=== PATIENT | female | born 1940 ===

== ENCOUNTER 2017-07-15 09:45 | Day surgery (SDC) | payer MEDICARE, MEDICAID ==
[2017-07-15 10:57] VITALS: TEMP 97
[2017-07-15] MEDS ORDERED: Propofol 10 mg/ml Inj (20 ML) ONE ×3 (10:57→12:03)
[2017-07-15] MEDS ORDERED: Labetalol 25mg/5ml Syringe ONE (12:06)
[2017-07-15 15:25] VITALS: BP 159/60; PULSE 60; RESP 18; O2SAT 99
== END 2017-07-15 13:50 | disposition home or self-care (01) ==
LOC: C.ENDO 09:45
PROVIDERS: ATTEND Internal Medicine
DX: Z86.010 Personal history of colon polyps (principal); K21.9 Gastro-esophageal reflux disease without esophagitis; Z12.11 Encounter for screening for malignant neoplasm of colon; K57.30 Diverticulosis of large intestine without perforation or abscess without bleeding; D12.4 Benign neoplasm of descending colon; K64.8 Other hemorrhoids; K29.70 Gastritis, unspecified, without bleeding
CPT/HCPCS: 43239; 45380; 88305; J2001; J2704

== ENCOUNTER 2017-08-12 06:50 | Day surgery (SDC) | payer MEDICARE, MEDICAID ==
[2017-08-12] MEDS ORDERED: Succinylcholine Chloride 20 mg/ml Syr (5 ml) IV ONE (07:58)
[2017-08-12] MEDS ORDERED: Propofol 10 mg/ml Inj (20 ML) ONE (07:58)
[2017-08-12] MEDS ORDERED: ePHEDrine 50 mg/ml Inj ONE (08:17)
[2017-08-12 08:58] VITALS: TEMP 97.3
[2017-08-12 10:13] VITALS: BP 161/66; PULSE 64; RESP 14; O2SAT 98
== END 2017-08-12 09:57 | disposition home or self-care (01) ==
LOC: C.ENDO 06:50
PROVIDERS: ATTEND Internal Medicine
DX: K31.9 Disease of stomach and duodenum, unspecified (principal)
CPT/HCPCS: 43235; 88305; 88342; J2001; J2405; J2704; J3010